=== PATIENT | female | born 1965 | race Hispanic/Latino ===

== ENCOUNTER 2017-03-21 01:54 | Emergency (ER) | payer OTHER ==
--- NOTE | 2017-03-21 03:12 | Emergency Department Report ---
ED Chest Pain HPI - General Stated Complaint: CP Time Seen by Provider: 03/21/17 02:58 Source: patient Mode of arrival: Ambulatory Limitations: No Limitations - History of Present Illness Initial Comments: 52 YO FEMALE WITH H/O RHEUMTIC HEART VALVE DISEASE, MITRAL STENOSIS WHO HAD MITRAL VALVE [facility] ANGIOPLASTY LAST FRIDAY AT [facility]. SHE HAD PAIN IN HER CHEST AT THE [facility] HER WHOLE LIFE OR 4-5 YEARS AND THEN IT WENT AWAY LST FRIDAY AFTER THE ANGIOPLASTY. TODAY, SHE TURNED TO THE LEFT AND THEN HEARD A POP AND THE CHRONIC PAIN WHICH SHE HAS HAD CAME RIGHT BACK. SHE ALSO IS SHORT OF BREATH. MD Complaint: chest pain -: Sudden (11HRS), hour(s) (11HRS AGO) Onset: during exertion (SUDDENTLY TURNING TO THE LEFT), other (PT TURNED TO THE LEFT AND FELT PAIN BELOW [facility] OF HEART) Quality: sharp Consistency: constant Improves With: nothing Worsens With: palpation, movement Context: other (RECENT MITRAL VALVE BALOON ANGIOPLASTY) re: diaphoresis (GONG THROUGH MENAPAUSE), dyspnea. denies: nausea, vomting, sense of impending doom, other Treatments Prior to Arrival: none Heart Score - HEART Score History: Slightly suspicious EKG: Normal Age: 45-65 Risk factors: 1-2 risk factors Troponin: < normal limit HEART Score: 2 ED Review of Systems ROS: Stated complaint: CP Other details as noted in HPI Constitutional: denies: chills, fever Eyes: denies: eye pain, eye discharge, vision change ENT: denies: ear pain, throat pain Respiratory: shortness of breath. denies: cough, wheezing Cardiovascular: denies: chest pain, palpitations Endocrine: no symptoms reported Gastrointestinal: denies: abdominal pain, nausea, diarrhea Genitourinary: denies: urgency, dysuria, discharge Musculoskeletal: denies: back pain, joint swelling, arthralgia Skin: denies: rash, lesions Neurological: denies: headache, weakness, paresthesias Psychiatric: denies: anxiety, depression Hematological/Lymphatic: denies: easy bleeding, easy bruising ED Past Medical Hx - Past Medical History Previous Medical History?: Yes Additional medical history: RHEUMATIC FEVER, MITRAL VALVE STENOSIS - Surgical History Additional Surgical History: MITRAL VALVE [place] ANGIOPLASTY ED Physical Exam - General General appearance: alert, in no apparent distress - Head Head exam: Present: atraumatic, normocephalic - Eye Eye exam: Present: normal appearance, EOMI - ENT ENT exam: Present: mucous membranes moist - Neck Neck exam: Present: normal inspection, full ROM - Respiratory Respiratory exam: Present: normal lung sounds bilaterally, chest wall tenderness (AT [facility] OF HEAR). Absent: respiratory distress - Cardiovascular Cardiovascular Exam: Present: regular rate, normal rhythm. Absent: systolic murmur, diastolic murmur, rubs, gallop - GI/Abdominal GI/Abdominal exam: Present: soft, normal bowel sounds - Rectal Rectal exam: Present: deferred - Extremities Exam Extremities exam: Present: normal inspection, full ROM - Back Exam Back exam: Present: normal inspection, full ROM - Neurological Exam Neurological exam: Present: alert, oriented X3, CN II-XII intact - Psychiatric Psychiatric exam: Present: normal affect, normal mood - Skin Skin exam: Present: warm, dry, intact, normal color. Absent: rash ED Course Vital Signs 03/21/17 03/21/17 03/21/17 03:25 03:35 03:41 Temperature 98.2 F 98.2 F Pulse Rate 69 66 Respiratory 19 19 19 Rate Blood Pressure 110/66 Blood Pressure 110/66 [Left] O2 Sat by Pulse 99 99 99 Oximetry DWIGHT score - Dwight Score Age > 65: (0) No Aspirin use within the Past 7 Days: (0) No 3 or more CAD Risk Factors: (0) No 2 or more Angina events in past 24 hrs: (0) No Known CAD with more than 50% Stenosis: (0) No Elevated Cardiac Markers: (0) No ST Deviation Greater than 0.5mm: (0) No DWIGHT Score: 0 ED Medical Decision Making - Lab Data Result diagrams: 03/21/17 03:20 03/21/17 03:20 - Radiology Data Radiology results: report reviewed (CXR:NEGATIVE) - Medical Decision Making THIS IS RETURN OF CHRONIC PAIN BUT I JACKIE EVALUATE FOR CHF AND PE WITH LOW HEART SCORE AND LOW DWIGHT SCORE AND CHRONIC PAIN, I BELIEVE THAT THIS IS NOT CARDIAC PAIN THT REQUIRES ADMISSION. VERY LOW SUSPECION FOR PE. Critical care attestation.: If time is entered above; I have spent that time in minutes in the direct care of this critically ill patient, excluding procedure time. ED Disposition Clinical Impression: Marijuana abuse, Benzodiazepine abuse Chest pain Qualifiers: Chest pain type: unspecified Qualified Code(s): R07.9 - Chest pain, unspecified Disposition: TO HOME OR SELFCARE Is pt being admited?: No Does the pt Need Aspirin: No Condition: Stable Instructions: Thoracic Pain (ED) Additional Instructions: PLEASE SEE YOUR DR FOR THSI CHRONIC PAIN . RETURN TO THE ER IF SYMPTOMS GET WORSE Referrals: ADRIAN DIAZ MD [Primary Care Provider] - 3-5 Days Time of Disposition: 05:54
--- NOTE | 2017-03-21 03:32 | XRay Report ---
FINAL REPORT EXAM: XR CHEST 1V AP HISTORY: SHORT OF BREATH TECHNIQUE: An AP view of the chest was submitted. FINDINGS: The heart size and mediastinum appear normal. The lungs are clear. Pleural fluid is not seen. There are EKG leads overlying the chest wall. The bones and soft tissues appear normal. IMPRESSION: Normal chest.
[2017-03-21 03:45] LABS: Hematocrit 36.9 % (30.3-42.9); Hemoglobin 12.4 gm/dl (10.1-14.3); Mean Corpuscular HGB Conc 34 % (30-34); Mean Corpuscular Hemoglobin 30 pg (28-32); Mean Corpuscular Volume 90 fl (79-97); Platelet Count 226 K/mm3 (140-440); Red Blood Count 4.11 M/mm3 (3.65-5.03); Red Cell Distribution Width 13.9 % (13.2-15.2); White Blood Count 14.7 K/mm3 (4.5-11.0)
[2017-03-21 03:55] LABS: Urine Drugs of Abuse Note Disclamer
[2017-03-21 04:00] LABS: Alanine Aminotransferase 18 units/L (7-56); Albumin 4.4 g/dL (3.9-5); Albumin/Globulin Ratio 1.8 %; Alkaline Phosphatase 84 units/L (35-129); Anion Gap 18 mmol/L; BUN/Creatinine Ratio 14; Bilirubin,Total < 0.20 mg/dL (0.1-1.2); Blood Urea Nitrogen 18 mg/dL (7-17); Calcium 9.3 mg/dL (8.4-10.2); Carbon Dioxide 28 mmol/L (22-30); Chloride 96.6 mmol/L (98-107); Creatine Kinase 83 units/L (30-135); Glucose 88 mg/dL (65-100); Potassium 3.7 mmol/L (3.6-5.0); Sodium 139 mmol/L (137-145); Total Protein 6.9 g/dL (6.3-8.2)
[2017-03-21 04:24] LABS: Bacteria,Urine 1+ /HPF (Negative); Bilirubin,Urine NEG (Negative); Blood,Urine NEG (Negative); Ketones,Urine NEG (Negative); Leukocyte Esterase,Urine NEG (Negative); Nitrite,Urine NEG (Negative); Protein,Urine <15 mg/dL mg/dL (Negative); Urobilinogen,Urine < 2.0 mg/dL (<2.0)
[2017-03-21 04:50] LABS: Basophils % (Manual) 0 % (0.0-1.8); Blastocytes % (Manual) 0 %; Eosinophils % (Manual) 0 % (0.0-4.3)
[2017-03-21 04:51] LABS: Diff Status Complete; RBC Morphology Normal
[2017-03-21] MEDS ORDERED: TORADOL IM ONE (05:55)
[2017-03-21] MEDS ORDERED: TYLENOL PO ONE (05:55)
[2017-03-21] MEDS ORDERED: TYLENOL ONE (05:59)
[2017-03-21] MEDS ORDERED: TORADOL ONE (06:00)
[2017-03-21 06:45] VITALS: BP 110/68
== END 2017-03-21 06:22 | disposition home or self-care (01) ==
LOC: ED 01:54
DX: R07.89 Other chest pain (principal); F12.10 Cannabis abuse, uncomplicated; F13.10 Sedative, hypnotic or anxiolytic abuse, uncomplicated
CPT/HCPCS: 36415; 71010; 80053; 80307; 81001; 82550; 82553; 83880; 84484; 85007; 85025; 85379; 93005; 93010; 96372; 99284; J1885